=== PATIENT | female | born 1990 | race Caucasian/White ===

== ENCOUNTER 2017-12-23 21:53 | Emergency (ER) | payer MEDICAID ==
[2017-12-23 23:32] LABS: ADD MAN DIFF? NO
[2017-12-23 23:37] LABS: BASOPHILS % 0.2 % (0.0-2.0); EOSINOPHILS # 0.1 10^3/ul (0.0-0.5); EOSINOPHILS % 0.6 % (0.0-7.0); HEMATOCRIT 38.7 % (37.0-47.0); HEMOGLOBIN 13.2 g/dl (12.0-16.0); LYMPHOCYTES # 2.1 10^3/ul (0.8-2.9); LYMPHOCYTES % 22.7 % (15.0-51.0); MEAN CORPUSCULAR HEMOGLOBIN 30.8 pg (29.0-33.0); MEAN CORPUSCULAR HGB CONC 34.1 g/dl (32.0-37.0); MEAN CORPUSCULAR VOLUME 90.4 fl (82.0-101.0); MEAN PLATELET VOLUME 10.3 fl (7.4-10.4); MONOCYTE # 0.6 10^3/ul (0.3-0.9); MONOCYTES % 6.1 % (0.0-11.0); NEUTROPHIL # 6.5 10^3/ul (1.6-7.5); NEUTROPHILS % 70.2 % (39.0-77.0); PLATELET COUNT 222 10^3/UL (140-415); RED BLOOD COUNT 4.28 10^6/ul (4.20-5.40); RED CELL DISTRIBUTION WIDTH 12.5 % (11.5-14.5)
[2017-12-23 23:37] LABS: WHITE BLOOD COUNT 9.3 10^3/ul (4.8-10.8)
[2017-12-23 23:50] LABS: ADD UMIC YES; UR ASCORBIC ACID 20 mg/dL (NEGATIVE); UR BACTERIA FEW /HPF (NONE SEEN); UR BILIRUBIN (Dip) NEGATIVE (NEGATIVE); UR BLOOD (Dip) 2+ mg/dL (NEGATIVE); UR CLARITY CLEAR (CLEAR); UR COLOR YELLOW (YELLOW); UR GLUCOSE (Dip) NEGATIVE (NEGATIVE); UR KETONES (Dip) NEGATIVE (NEGATIVE); UR LEUKOCYTE ESTERASE (Dip) TRACE Leu/ul (NEGATIVE); UR NITRITE (Dip) NEGATIVE (NEGATIVE); UR RBC 1 /HPF (0-5); UR SPECIFIC GRAVITY (Dip) 1.011 (1.003-1.030); UR SQUAMOUS EPITHELIAL CELL FEW /HPF (FEW); UR TOTAL PROTEIN (Dip) NEGATIVE (NEGATIVE); UR UROBILINOGEN (Dip) NEGATIVE (NEGATIVE); UR WBC 3 /HPF (0-5)
== END 2017-12-24 01:09 | disposition home or self-care (01) ==
LOC: FTE 12-24 01:09
DX: O30.031 Twin pregnancy, monochorionic/diamniotic, first trimester (principal); R10.2 Pelvic and perineal pain; Z3A.01 Less than 8 weeks gestation of pregnancy; Z97.5 Presence of (intrauterine) contraceptive device
CPT/HCPCS: 36415; 76801; 76802; 76817; 81001; 84702; 85025; 86900; 86901; 99284-25

== ENCOUNTER 2017-12-26 08:38 | Emergency (ER) | payer MEDICAID ==
[2017-12-26 09:31] LABS: ADD MAN DIFF? NO
[2017-12-26 09:32] LABS: WHITE BLOOD COUNT 7.9 10^3/ul (4.8-10.8)
[2017-12-26 09:32] LABS: BASOPHILS % 0.4 % (0.0-2.0); EOSINOPHILS % 0.5 % (0.0-7.0); HEMOGLOBIN 13.4 g/dl (12.0-16.0); LYMPHOCYTES # 1.8 10^3/ul (0.8-2.9); LYMPHOCYTES % 22.7 % (15.0-51.0); MEAN CORPUSCULAR HGB CONC 34.4 g/dl (32.0-37.0); MEAN CORPUSCULAR VOLUME 90.3 fl (82.0-101.0); MEAN PLATELET VOLUME 10.3 fl (7.4-10.4); MONOCYTE # 0.6 10^3/ul (0.3-0.9); MONOCYTES % 7.2 % (0.0-11.0); NEUTROPHIL # 5.4 10^3/ul (1.6-7.5); NEUTROPHILS % 68.9 % (39.0-77.0); PLATELET COUNT 208 10^3/UL (140-415); RED BLOOD COUNT 4.32 10^6/ul (4.20-5.40); RED CELL DISTRIBUTION WIDTH 12.5 % (11.5-14.5)
== END 2017-12-26 10:56 | disposition home or self-care (01) ==
LOC: FTE 08:38
DX: O20.9 Hemorrhage in early pregnancy, unspecified (principal); Z3A.01 Less than 8 weeks gestation of pregnancy
CPT/HCPCS: 36415; 84702; 85025; 99283-25